=== PATIENT | male | born 1935 | race Caucasian/White ===

== ENCOUNTER 2017-01-29 10:43 | Emergency (ER) | payer MEDICARE ==
[~2017-01-29] VITALS: Ht 182.9 cm; Wt 106.6 kg
[2017-01-29] MEDS ORDERED: FURO20TA2 (11:03)
[2017-01-29] MEDS ORDERED: ASPI81TA21 PO (11:03)
[2017-01-29] MEDS ORDERED: ZOLP5TAB (11:03)
[2017-01-29] MEDS ORDERED: FINA5TAB2 (11:03)
[2017-01-29] MEDS ORDERED: LORA-376 (11:03)
[2017-01-29] MEDS ORDERED: ATOR40TA (11:03)
[2017-01-29] MEDS ORDERED: METF500T (11:03)
[2017-01-29] MEDS ORDERED: ALBU83IN (11:03)
[2017-01-29] MEDS ORDERED: LISINOP/HCTZ (11:03)
[2017-01-29] MEDS ORDERED: GLIP5TAB8 (11:03)
--- NOTE | 2017-01-29 11:50 | REP ---
PORTABLE CHEST: AP portable view of the chest is performed. There are no prior studies for comparison. There is cardiomegaly. There appears to be vascular congestion. There are diffuse increased interstitial markings suggesting diffuse interstitial edema. There is some calcification of the thoracic aorta. The mediastinal silhouette is otherwise unremarkable. IMPRESSION: Cardiomegaly with apparent vascular congestion and diffuse interstitial edema. Signed by Ankit Billy MD 01/29/2017 04:51 P
[2017-01-29 12:01] LABS: BASO % 0.3 % (0.0-1.0); EOS % 0.8 % (0.0-3.0); LARGE UNSTAINED CELL # 0.1 K/mm3 (0.0-0.4); LYMPH # 0.7 K/mm3 (1.5-4.5); LYMPH % 10.1 % (24.0-44.0); MEAN CORPUSCULAR HEMOGLOBIN 29.9 pg (27.0-33.0); MEAN CORPUSCULAR HGB CONC 31.9 g/dl (32.0-36.5); MEAN CORPUSCULAR VOLUME 93.5 fl (80.0-96.0); MONO # 0.6 K/mm3 (0.0-0.8); MONO % 8.1 % (0.0-5.0); NEUTROPHILS # 5.5 K/mm3 (1.8-7.7); NEUTROPHILS % 78.7 % (36.0-66.0); PLATELET COUNT, AUTOMATED 229 k/mm3 (150-450); RED CELL DISTRIBUTION WIDTH 14.6 % (11.5-14.5)
[2017-01-29 12:28] LABS: ALBUMIN 3.4 GM/DL (3.2-5.2); ALBUMIN/GLOBULIN RATIO 0.87 (1.00-1.93); BILIRUBIN,DIRECT 0.4 MG/DL (0.0-0.2); BILIRUBIN,TOTAL 1.3 MG/DL (0.2-1.0); CALCIUM LEVEL 8.9 MG/DL (8.8-10.2); CREATININE FOR GFR 1.53 MG/DL (0.70-1.30); GLOMERULAR FILTRATION RATE 46.7 (>35); TOTAL PROTEIN 7.3 GM/DL (6.4-8.2)
[2017-01-29 12:43] LABS: POTASSIUM SERUM 5.3 MEQ/L (3.5-5.1)
[2017-01-29] MEDS ORDERED: FUROSEMIDE 40 MG/4 ML VIAL (J1940) IV ONE (12:45)
[2017-01-29 13:03] LABS: ABG BASE EXCESS -0.3 (-2.0-2.0); ABG HCO3 23.9 MEQ/L (22.0-26.0); ABG PARTIAL PRESSURE CO2 37.3 mmHg (35.0-45.0); ABG PARTIAL PRESSURE O2 134.1 mmHg (75.0-100.0); ABG STANDARD HCO3 24.3 MEQ/L (22.0-26.0); ABG pH (ARTERIAL) 7.424 UNITS (7.350-7.450)
[2017-01-29] MEDS ORDERED: GLIP5TAB8 PO (14:48)
[2017-01-29] MEDS ORDERED: ASPI1TAB PO (14:48)
[2017-01-29] MEDS ORDERED: FINA5TAB2 PO (14:48)
[2017-01-29] MEDS ORDERED: METF500T PO (14:48)
[2017-01-29] MEDS ORDERED: ZOLP5TAB PO (14:48)
[2017-01-29] MEDS ORDERED: FURO20TA2 PO (14:48)
[2017-01-29] MEDS ORDERED: LISI10TA2 PO (14:48)
[2017-01-29] MEDS ORDERED: ATOR40TA PO (14:48)
[2017-01-29] MEDS ORDERED: PROA1AER INH (14:49)
[2017-01-29] MEDS ORDERED: LORA-376 PO (14:49)
[2017-01-29] MEDS ORDERED: ALB2.5NEB INH (14:49)
[2017-01-29] MEDS ORDERED: NITR4TASL SL (14:50)
[2017-01-29 18:45] VITALS: BP 160/72
[2017-01-29] MEDS ORDERED: NITROGLYCERIN 2% OINT 1 GM *U/D* PKT TOP ONE (18:45)
[2017-01-29 19:40] VITALS: BP 120/82
--- NOTE | 2017-02-01 08:14 | ECGEPIP ---
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
== END 2017-01-29 19:59 | disposition short-term general hospital (02) ==
LOC: M ED 11:57 → CANBEDREQ 17:55 → M ED 19:59
DX: I50.33 Acute on chronic diastolic (congestive) heart failure (principal); I48.91 Unspecified atrial fibrillation; I35.0 Nonrheumatic aortic (valve) stenosis; I25.10 Atherosclerotic heart disease of native coronary artery without angina pectoris; E11.9 Type 2 diabetes mellitus without complications; I11.0 Hypertensive heart disease with heart failure; J44.9 Chronic obstructive pulmonary disease, unspecified; E78.5 Hyperlipidemia, unspecified; N40.0 Benign prostatic hyperplasia without lower urinary tract symptoms; Z95.5 Presence of coronary angioplasty implant and graft; Z99.81 Dependence on supplemental oxygen; Z79.82 Long term (current) use of aspirin; Z79.899 Other long term (current) drug therapy
CPT/HCPCS: 36415; 36600; 71010; 80048; 80076; 82550; 82553; 82803; 83605; 83880; 84484; 85025; 93005; 93041; 96374; 99285; J1940